=== PATIENT | female | born 1990 | race Hispanic/Latino ===

== ENCOUNTER 2017-08-20 04:54 | Emergency (ER) | payer BC, OTHER ==
--- NOTE | 2017-08-20 05:53 | ED PDOC ---
Arrival/HPI - General Chief Complaint: Chest Pain Time Seen by Provider: 08/20/17 05:41 Historian: Patient - History of Present Illness Narrative History of Present Illness (Text): 08/20/17 05:49 Lorraine Rios is a 26 year old female, whose past medical history includes seizure disorder, who presents to the Emergency department complaining of left- sided pleuritic chest pain, worse with deep inspiration and movement today. Patient states she has been experiencing a cough for the past few days and began experiencing chest pain after coughing this morning. Patient states she is currently on day 3 of her Z-kasi that she had left over from a previous prescription. Patient denies any fever, chills, shortness of breath, nausea, vomiting, diarrhea, urinary symptoms, back pain, neck pain, headache, dizziness , or any other complaints. PMD: Dr. Beryl Zamora Neuro: Dr. Cagle Symptom Onset: Gradual Symptom Course: Unchanged Activities at Onset: Light Context: Home Past Medical History - Provider Review Nursing Documentation Reviewed: Yes - Infectious Disease Hx of Infectious Diseases: None - Neurological Hx Seizures: Yes - Psychiatric Hx Substance Use: No - Anesthesia Hx Anesthesia: No Family/Social History - Physician Review Nursing Documentation Reviewed: Yes Family/Social History: Unknown Family HX Smoking Status: Never Smoked Hx Alcohol Use: No Hx Substance Use: No Allergies/Home Meds Allergies/Adverse Reactions: Allergies Penicillins Adverse Reaction (Verified 08/20/17 05:38) ANAPHYLAXIS sulfamethoxazole [From Bactrim] Adverse Reaction (Verified 08/20/17 05:38) RASH trimethoprim [From Bactrim] Adverse Reaction (Verified 08/20/17 05:38) RASH Home Medications: Home Meds Medication Instructions Recorded Confirmed No Known Home Med 08/20/17 08/20/17 Review of Systems - Physician Review All systems were reviewed & negative as marked: Yes - Review of Systems Constitutional: Normal. absent: Fevers Eyes: Normal ENT: Normal Respiratory: Cough Cardiovascular: Chest Pain Gastrointestinal: Normal. absent: Abdominal Pain, Diarrhea, Nausea, Vomiting Genitourinary Female: Normal. absent: Dysuria, Frequency, Hematuria, Urine Output Changes Musculoskeletal: Normal. absent: Back Pain, Neck Pain Skin: Normal. absent: Rash Neurological: Normal. absent: Headache, Dizziness Endocrine: Normal Hemo/Lymphatic: Normal Psychiatric: Normal Physical Exam Vital Signs Reviewed: Yes Vital Signs Pulse Resp BP Pulse Ox 08/20/17 05:03 87 18 130/74 96 Temperature: Afebrile Blood Pressure: Normal Pulse: Regular Respiratory Rate: Normal Appearance: Positive for: Well-Appearing, Non-Toxic, Comfortable Pain Distress: None Mental Status: Positive for: Alert and Oriented X 3 - Systems Exam Head: Present: Atraumatic, Normocephalic Pupils: Present: PERRL Extroacular Muscles: Present: EOMI Conjunctiva: Present: Normal Mouth: Present: Moist Mucous Membranes Neck: Present: Normal Range of Motion Respiratory/Chest: Present: Clear to Auscultation, Good Air Exchange. No: Respiratory Distress, Accessory Muscle Use Cardiovascular: Present: Regular Rate and Rhythm, Normal S1, S2. No: Murmurs Abdomen: No: Tenderness, Distention, Peritoneal Signs Back: Present: Normal Inspection Upper Extremity: Present: Normal Inspection. No: Cyanosis, Edema Lower Extremity: Present: Normal Inspection. No: Edema Neurological: Present: GCS=15, CN II-XII Intact, Speech Normal Skin: Present: Warm, Dry, Normal Color. No: Rashes Psychiatric: Present: Alert, Oriented x 3, Normal Insight, Normal Concentration Medical Decision Making ED Course and Treatment: 08/20/17 05:49 Impression: 26 year old female complaining of left-sided pleuritic chest pain and cough. Plan: -- EKG -- Chest X-ray -- Labs, cardiac enzymes, D-dimer -- Reassess and disposition Progress Notes: reviewed EKG, NSR at 83 bpm. Incomplete RBBB. No acute changes. 08/20/17 07:00 Case endorsed to /pending labs/Chest X-ray/reassess/final disposition - Lab Interpretations Lab Results: 08/20/17 05:51 Lab Results 08/20/17 05:51: WBC 12.1 H, RBC 4.33, Hgb 12.9, Hct 37.3, MCV 86.1, MCH 29.8, MCHC 34.6, RDW 12.7, Plt Count 262, MPV 10.0 08/20/17 05:50: PT 13.7 H, INR 1.19 H, APTT 34.0, D-Dimer, Quantitative < 200 - RAD Interpretation Radiology Orders: 08/20/17 05:50 CHEST PORTABLE [RAD] Stat - EKG Interpretation Interpreted by ED Physician: Yes Type: 12 lead EKG - Medication Orders Current Medication Orders: Discontinued Medications Ketorolac Tromethamine (Toradol) 30 mg IVP STAT STA Stop: 08/20/17 06:22 Last Admin: 08/20/17 06:30 Dose: 30 mg MAR Pain Assessment Document 08/20/17 06:30 IT (Rec: 08/20/17 06:32 IT [id number]) Pain Reassessment Is this a pain reassessment? No Sleep Is patient sleeping during reassessment? No Presence of Pain Presence of Pain Yes Pain Scale Used Pain Scale Used Numeric IVP Administration Document 08/20/17 06:30 IT (Rec: 08/20/17 06:32 IT [id number]) Charges for Administration # of IVP Administrations 1 - Scribe Statement The provider has reviewed the documentation as recorded by the Scribe June Gonzalez Provider Scribe Attestation: All medical record entries made by the Scribe were at my direction and personally dictated by me. I have reviewed the chart and agree that the record accurately reflects my personal performance of the history, physical exam, medical decision making, and the department course for this patient. I have also personally directed, reviewed, and agree with the discharge instructions and disposition. Disposition/Present on Arrival - Present on Arrival Any Indicators Present on Arrival: No History of DVT/PE: No History of Uncontrolled Diabetes: No Urinary Catheter: No History of Decub. Ulcer: No History Surgical Site Infection Following: None - Disposition Have Diagnosis and Disposition been Completed?: No Diagnosis: Chest pain, Cough Disposition Time: 07:00 Condition: STABLE Discharge Instructions (ExitCare): Chest Pain (ED) Forms: [employer] ([place])
[2017-08-20 06:18] LABS: HEMOGLOBIN 12.9 g/dL (12.0-16.0); MEAN CELL VOLUME 86.1 fl (80.0-105.0); MEAN CORPUSCULAR HEMOGLOBIN 29.8 pg (25.0-35.0); MEAN CORPUSCULAR HGB CONC 34.6 g/dl (31.0-37.0); RBC 4.33 10^6/uL (3.5-6.1); RED CELL DISTRIBUTION WIDTH 12.7 % (11.5-14.5); WHITE BLOOD COUNT 12.1 10^3/ul (4.5-11.0)
[2017-08-20 06:26] LABS: D DIMER < 200 ng/mL (0-243); INR 1.19 (0.93-1.08); PROTHROMBIN TIME 13.7 SECONDS (9.4-12.5)
--- NOTE | 2017-08-20 07:12 | ED PDOC ---
Physical Exam Vital Signs Reviewed: Yes Vital Signs Pulse Resp BP Pulse Ox 08/20/17 05:03 87 18 130/74 96 Temperature: Afebrile Blood Pressure: Normal Pulse: Regular Respiratory Rate: Normal Appearance: Positive for: Well-Appearing, Non-Toxic, Comfortable Pain Distress: None Mental Status: Positive for: Alert and Oriented X 3 Medical Decision Making ED Course and Treatment: 08/20/17 07:09: Patient endorsed to me by Dr. Gray. Pending patient's lab results, re-evaluation, and disposition. XR Chest, 1 View EXAM DATE/TIME: 08/20/2017 5:50 AM Dictated and Authenticated by: Jose J Verde MD 08/20/2017 7:02 AM Eastern Time ([place] & [place]) IMPRESSION: Peripheral left midlung opacity could be reflective developing pneuomnnia. PROCEDURE: CT Chest with contrast Dictator : Rea Brown Report Date : 08/20/2017 09:30:56 IMPRESSION: Lateral left upper lobe 3.3 x 3.0 cm soft tissue opacity contiguous with the after mentioned pleural surfaces. A pulmonary infiltrate is favored given patient's age. If this is not compatible with patient's symptomatology, consider tissue sampling. Close follow-up to ensure resolution is recommended. No suspect lymphadenopathy. - Lab Interpretations Lab Results: 08/20/17 05:51 08/20/17 05:50 Lab Results 08/20/17 05:51: WBC 12.1 H, RBC 4.33, Hgb 12.9, Hct 37.3, MCV 86.1, MCH 29.8, MCHC 34.6, RDW 12.7, Plt Count 262, MPV 10.0 08/20/17 05:50: Sodium 143, Potassium 4.1, Chloride 104, Carbon Dioxide 25, Anion Gap 18, BUN 11, Creatinine 0.6 L, Est GFR ( Amer) > 60, Est GFR ( Non-Af Amer) > 60, Random Glucose 100, Calcium 9.7, Total Bilirubin 0.6, AST 25 , ALT 17, Alkaline Phosphatase 61, Lactate Dehydrogenase 376, Total Creatine Kinase 54, Troponin I < 0.01, Total Protein 7.9, Albumin 4.7, Globulin 3.2, Albumin/Globulin Ratio 1.4 08/20/17 05:50: PT 13.7 H, INR 1.19 H, APTT 34.0, D-Dimer, Quantitative < 200 I have reviewed the lab results: Yes - RAD Interpretation Radiology Orders: 08/20/17 05:50 CHEST PORTABLE [RAD] Stat 08/20/17 08:09 CHEST W/CONTRAST [CT] Stat - Medication Orders Current Medication Orders: Discontinued Medications Guaifenesin (Robitussin) 100 mg PO ONCE ONE Stop: 08/20/17 08:16 Last Admin: 08/20/17 08:26 Dose: 100 mg Ceftriaxone Sodium (Rocephin 1 Gram Ivpb) 1 gm in 100 mls @ 200 mls/hr IVPB STAT STA PRN Reason: Protocol Stop: 08/20/17 08:15 Last Admin: 08/20/17 08:25 Dose: 200 mls/hr eMAR Start Stop Document 08/20/17 08:25 [email or web address] (Rec: 08/20/17 08:26 [email or web address] [id number]) Intravenous Solution Start Date 08/20/17 Start Time 08:26 End Date 08/20/17 Azithromycin (Zithromax 500mg In Ns) 500 mg in 250 mls @ 167 mls/hr IVPB STAT STA PRN Reason: Protocol Stop: 08/20/17 09:15 Ketorolac Tromethamine (Toradol) 30 mg IVP STAT STA Stop: 08/20/17 06:22 Last Admin: 08/20/17 06:30 Dose: 30 mg MAR Pain Assessment Document 08/20/17 06:30 IT (Rec: 08/20/17 06:32 IT [id number]) Pain Reassessment Is this a pain reassessment? No Sleep Is patient sleeping during reassessment? No Presence of Pain Presence of Pain Yes Pain Scale Used Pain Scale Used Numeric IVP Administration Document 08/20/17 06:30 IT (Rec: 08/20/17 06:32 IT [id number]) Charges for Administration # of IVP Administrations 1 - Scribe Statement The provider has reviewed the documentation as recorded by the Donatoibe Atiya Menendez Provider Scribe Attestation: All medical record entries made by the Scribe were at my direction and personally dictated by me. I have reviewed the chart and agree that the record accurately reflects my personal performance of the history, physical exam, medical decision making, and the department course for this patient. I have also personally directed, reviewed, and agree with the discharge instructions and disposition. Disposition/Present on Arrival - Present on Arrival Any Indicators Present on Arrival: No History of DVT/PE: No History of Uncontrolled Diabetes: No Urinary Catheter: No History of Decub. Ulcer: No History Surgical Site Infection Following: None - Disposition Have Diagnosis and Disposition been Completed?: Yes Diagnosis: Cough, Pleuritic chest pain, Pneumonia Disposition: HOME/ ROUTINE Disposition Time: 09:47 Patient Plan: Discharge Patient Problems: Current Active Problems Problem Status Onset Chest pain Acute Cough Acute Condition: GOOD Discharge Instructions (ExitCare): Chest Pain (ED), Pneumonia, Adult (DC), Pleuritic Chest Pain (DC) Additional Instructions: Lorraine- Take the Xray and CT readings with you when you see your doctor in a day or two for follow up. Cleocin is four times a day. Continue the Zithromax. Best- Dr. Demond Rangel Prescriptions: Clindamycin [Clindamycin HCl] 300 mg PO QID #40 cap Referrals: Binu Zamora MD [Primary Care Provider] - Follow up with primary Forms: [employer] ([place] Citizen)
[2017-08-20] MEDS ORDERED: Azithromycin 500MG/NS 250ml 500 MG/250 ML BAG IVPB STA (07:46)
[2017-08-20] MEDS ORDERED: cefTRIAXone 1 gm 1 GM/100 ML BAG IVPB STA (07:46)
[2017-08-20 07:54] LABS: ALB/GLOB RATIO 1.4 (1.1-1.8); ALBUMIN 4.7 g/dL (3.0-4.8); ALT/SGPT 17 U/L (7-56); AST/SGOT 25 U/L (14-36); BLOOD UREA NITROGEN 11 mg/dL (7-21); CALCIUM 9.7 mg/dL (8.4-10.5); GFR AFRICAN-AMERICAN > 60; GFR NON-AFRICAN AMERICAN > 60
[2017-08-20 08:04] LABS: TROPONIN I < 0.01 ng/mL
[2017-08-20] MEDS ORDERED: guaiFENesin 100 mg/5 ml Syrup UD PO ONE (08:15)
[2017-08-20] MEDS ORDERED: Iohexol 350 MG/100 ML VIAL ONE (08:15)
--- NOTE | 2017-08-20 08:17 | RAD ---
HISTORY: sob COMPARISON: No prior. FINDINGS: LUNGS: In the lateral left mid lung zone the oval opacity, 4 x 2.8 cm is present PLEURA: No significant pleural effusion identified, no pneumothorax apparent. Adjacent to the lateral left mid lung zone opacity, contiguous left pleural parenchymal reaction -possible CARDIOVASCULAR: Normal. OSSEOUS STRUCTURES: No significant abnormalities. VISUALIZED UPPER ABDOMEN: Normal. OTHER FINDINGS: None. IMPRESSION: Lateral left mid lung zone oval -masslike opacity. Infiltrate/pneumonia/ rounded atelectasis/pulmonary infarct versus mass- (possibly pleural based) are some considerations. Clinical correlation with patient's symptomatology cough and positive or negative dimer status . CT of the chest with contrast may be helpful for clarification Comments: Findings discussed with Dr. Rangel
--- NOTE | 2017-08-20 09:32 | CT ---
PROCEDURE: CT Chest with contrast HISTORY: Left Sided Peripheral Lesion COMPARISON: Chest x-ray a 2017 TECHNIQUE: Contiguous axial images were obtained through the chest with intravenous contrast enhancement. Sagittal and coronal reconstructions were performed. IV contrast: 100 mL Omnipaque 350 Radiation dose (DLP): 214 mGy-cm. This CT exam was performed using one or more of the following dose reduction techniques: Automated exposure control, adjustment of the mA and/or kV according to patient size, and/or use of iterative reconstruction technique. FINDINGS: LUNGS: The lateral left mid lung zone opacity corresponds to a lateral left upper lobe 3.3 x 3.0 cm soft tissue like opacity a few small gas pockets within it are noted most of the Hounsfield units correspond to soft tissue density. This masslike opacity is contiguous with the left lateral pleural and left major visual surfaces. The subjacent rib here is intact without gross demineralization or interruption. Small air bronchogram g going towards it are noted (axial series 3, image 56). Along its anterior and medial border are ill-defined ground-glass like opacities. No significant appearing pulmonary additional nodules or additional masses suggested Visualized central airways clear. MEDIASTINUM: Unremarkable thoracic aorta. No aneurysm or dissection. Normal sized heart. Main pulmonary artery unremarkable. No central or gross segmental pulmonary emboli appreciated. No vascular congestion. No lymphadenopathy. PLEURA: No pleural fluid. No pneumothorax. Left upper lobe masslike opacity contiguous with the left major fissure and left lateral pleural surface as above BONES: No fracture. No destructive lesion. UPPER ABDOMEN: Diffuse fatty infiltration of the liver suggested. OTHER FINDINGS: None. IMPRESSION: Lateral left upper lobe 3.3 x 3.0 cm soft tissue opacity contiguous with the after mentioned pleural surfaces. A pulmonary infiltrate is favored given patient's age. If this is not compatible with patient's symptomatology, consider tissue sampling. Close follow-up to ensure resolution is recommended. No suspect lymphadenopathy.
[2017-08-20 09:54] VITALS: BP 135/67; O2SAT 99
[2017-08-20 11:26] VITALS: PULSE 92; RESP 19; TEMP 98
== END 2017-08-20 11:26 | disposition home or self-care (01) ==
LOC: ED 04:54
DX: R07.9 Chest pain, unspecified (principal); R05 Cough; G40.909 Epilepsy, unspecified, not intractable, without status epilepticus
CPT/HCPCS: 71045; 71260; 80053; 82550; 83615; 84484; 85027; 85378; 85610; 85730; 96374; 96375; 99283; J0456; J0696; J1885; Q9967

== ENCOUNTER 2018-04-13 12:14 | Outpatient (CLI) | payer BC, OTHER | END 2018-04-13 12:15 | disposition home or self-care (01) | LOC: RAD 12:14 ==

== ENCOUNTER 2018-05-17 17:13 | Outpatient (CLI) | payer BC, OTHER | END 2018-05-17 17:14 | disposition home or self-care (01) | LOC: RAD 17:13 ==